=== PATIENT | male | born 1985 | race African-American/Black ===

== ENCOUNTER → 2018-05-06 | Outpatient (CLI) | payer OTHER ==
[~2018-05-06] MED LIST: AMITRIPTYLINE H10 M3 PO; MEDROLDOSEPACK PO; MOBIC15 MG PO; TRAMADOL 50 MG50 MG PO
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
== END ==
LOC: M.PC 04:26
DX: M25.511 Pain in right shoulder (principal); M19.90 Unspecified osteoarthritis, unspecified site; I10 Essential (primary) hypertension